=== PATIENT | female | born 1945 | race Caucasian/White ===

== ENCOUNTER 2016-10-11 06:56 | Day surgery (SDC) | payer MEDICARE ==
--- NOTE | ~2016-10-11 | EGD ---
EGD REPORT [facility] [address] [place] [address] NAME: ASHWIN HALL : [birth year] STATUS : REG [facility] PAT#: [id number] AGE: 71 ADM/REG DATE : 10/11/16 MR#: [id number] REPORT SERV DATE: 10/11/16 DICTATED BY: NOEMY GOLDBERG DATE: 10/11/16 REPORT STATUS : Draft TRANSCRIBED BY: [facility] DATE: 10/11/16 Endoscopy Center Patient Name: Ashwin Hall Date of : 1945 Attending MD: NOEMY GOLDBERG MD Procedure Date No Time: 10/11/2016 Procedure: Colonoscopy Indications: Abdominal pain in the left lower quadrant, Abdominal pain in the right lower quadrant, Constipation Referring MD: ANNALISE ARORA Medicines: as per anesthesia Complications: No immediate complications. Procedure: Pre-Anesthesia Assessment: - ASA Grade Assessment: II - A patient with mild systemic disease. After I obtained informed consent, the scope was passed under direct vision. Throughout the procedure, the patient's blood pressure, pulse, and oxygen saturations were monitored continuously. The [facility] [id number] was introduced through the anus and advanced to the cecum, identified by appendiceal orifice and ileocecal valve. The colonoscopy was somewhat difficult due to significant looping and a tortuous colon. The patient tolerated the procedure. The quality of the bowel preparation was adequate to identify polyps. Findings: The perianal and digital rectal examinations were normal. A sessile polyp was found in the ascending colon. The polyp was 3 mm in size. The polyp was removed with a cold biopsy forceps. Resection and retrieval were complete. Two sessile polyps were found in the transverse colon. The polyps were 3 to 4 mm in size. These polyps were removed with a cold biopsy forceps. Resection and retrieval were complete. A few small and large-mouthed diverticula were found in the sigmoid colon and in the descending colon. Impression: - One 3 mm polyp in the ascending colon. Resected and retrieved. - Two 3 to 4 mm polyps in the transverse colon. Resected and retrieved. - Diverticulosis in the sigmoid colon and in the descending colon. Recommendation: - Await pathology results. EGD REPORT [address] [address] NAME: ASHWIN HALL : [birth year] STATUS : REG [facility] PAT#: [id number] AGE: 71 ADM/REG DATE : 10/11/16 MR#: [id number] REPORT SERV DATE: 10/11/16 DICTATED BY: NOEMY GOLDBERG DATE: 10/11/16 REPORT STATUS : Draft TRANSCRIBED BY: [employer] DATE: 10/11/16 - Repeat colonoscopy for surveillance based on pathology results. Procedure Code(s): --- Professional --- 97918, Colonoscopy, flexible, proximal to splenic flexure; with biopsy, single or multiple Diagnosis Code(s): --- Professional --- D12.3, Benign neoplasm of transverse colon D12.2, Benign neoplasm of ascending colon K57.30, Diverticulosis of large intestine without perforation or abscess without bleeding R10.32, Left lower quadrant pain R10.31, Right lower quadrant pain K59.00, Constipation, unspecified CPT copyright 2013 [employer]. All rights reserved. The codes documented in this report are preliminary and upon hcc coders review may be revised to meet current compliance requirements. NOEMY GOLDBERG MD 10/11/2016 9:24 AM This report has been signed electronically. Number of Addenda: 0 Note Initiated On: 10/11/2016 8:40 AM Scope Withdrawal Time 0 hours 10 minutes 5 seconds [id number] [id number]
[~2016-10-11 06:56] MED LIST: ATV1 PO; CELEXA20 PO; CRESTOR10 PO; EFFEXOR XR150 MG PO; LINZESS 290 M290 MCG PO; OS500+D PO
== END 2016-10-11 23:59 | disposition home or self-care (01) ==
LOC: DMU 06:56
PROVIDERS: Internal Medicine Gastroenterology
PROC: 0DBM8ZZ Excision of Descending Colon, Via Natural or Artificial Opening Endoscopic (ICD-10-PCS; 2016-10-11)
PROC: 0DBN8ZZ Excision of Sigmoid Colon, Via Natural or Artificial Opening Endoscopic (ICD-10-PCS; 2016-10-11)
PROC: 0DBL8ZZ Excision of Transverse Colon, Via Natural or Artificial Opening Endoscopic (ICD-10-PCS; 2016-10-11)
PROC: 0DBK8ZZ Excision of Ascending Colon, Via Natural or Artificial Opening Endoscopic (ICD-10-PCS; principal; 2016-10-11 08:00)
DX: D12.2 Benign neoplasm of ascending colon (principal); D12.3 Benign neoplasm of transverse colon; K57.30 Diverticulosis of large intestine without perforation or abscess without bleeding; R10.32 Left lower quadrant pain; R10.31 Right lower quadrant pain; K59.00 Constipation, unspecified; F32.9 Major depressive disorder, single episode, unspecified; H26.9 Unspecified cataract; H91.90 Unspecified hearing loss, unspecified ear; G43.909 Migraine, unspecified, not intractable, without status migrainosus; R01.1 Cardiac murmur, unspecified; F41.0 Panic disorder [episodic paroxysmal anxiety]; M19.90 Unspecified osteoarthritis, unspecified site; K58.9 Irritable bowel syndrome, unspecified; Z88.5 Allergy status to narcotic agent; Z88.2 Allergy status to sulfonamides; Z98.890 Other specified postprocedural states; Z90.89 Acquired absence of other organs; Z97.4 Presence of external hearing-aid; Z79.899 Other long term (current) drug therapy
CPT/HCPCS: 88305